=== PATIENT | female | born 1985 | race Caucasian/White ===

== ENCOUNTER 2016-10-12 00:35 | Inpatient (IN) | payer OTHER ==
[2016-10-12] MEDS ORDERED: OXYTOCIN 10 UNITS/ML VIAL IM ONE (01:03)
[2016-10-12] MEDS ORDERED: MINERAL OIL 25 ML BOT ONE (01:12)
[2016-10-12] MEDS ORDERED: OXYTOCIN 10 UNITS/ML VIAL ONE (01:12)
[2016-10-12] MEDS ORDERED: LIDOCAINE Viscous 2% 15 ML UDCUP ONE (01:13)
[2016-10-12] MEDS ORDERED: PUMP TUBING ONE (01:13)
[2016-10-12] MEDS ORDERED: OXYTOCIN IN LR 0 ML IV ONE (01:13)
[2016-10-12] MEDS ORDERED: LIDOCAINE 1% (PRES FREE) 30 ML VIAL ONE (01:13)
[2016-10-12 01:27] VITALS: BMI 33.3
[2016-10-12] MEDS ORDERED: FENTANYL/ROPIVACAINE EPIDURAL 250 ML EP ONE (01:43)
[2016-10-12] MEDS ORDERED: EPIDURAL PUMP SET ONE (01:43)
[2016-10-12] MEDS: LACTATED RINGERS 1,000 ML IV PRN ×2 (01:46→02:10)
[2016-10-12 01:59] LABS: HEMATOCRIT 35.6 % (37.0-47.0); HEMOGLOBIN 12.1 gm/l (12.0-16.0); MEAN CELL VOLUME 83.2 fl (81.0-99.0); MEAN CORPUSCULAR HEMOGLOBIN 28.3 pg (27.0-31.0)
[2016-10-12] MEDS ORDERED: EPIDURAL PROCEDURE TRAY ONE (02:06)
[2016-10-12] MEDS ORDERED: LACTATED RINGERS 2,000 ML ONE (02:07)
--- NOTE | 2016-10-12 02:16 | PCMAN ---
OB Admission Note - History : 7 Term: 4 : 0 Abortions (S&E): 2 Livin Gestational Age (weeks): 40 Days (#/7): 3 Admit Cervical Dilation:: 6.5 Admit Cervical Effacement (%):: 90 Admit Station:: -1 Admit Presentaton:: vertex Membrane Status: Intact Labor Onset (Date): 10/11/16 Labor Onset (Time): 20:00 Contractions: Yes Contraction Frequency:: q2-3min Heart Rate:: 130 (moderate variability, accels present, early decel present) Status:: Category 1 EFW:: [id number] Summary of Course:: Onset of care at 18wks x11 visits. course complicated by AB neg maternal blood type (declined Rhogam at 28wks) and failed 1hr gtt and passed 3hr gtt. Medical history includes migraines, pyelonephritis in 2007 during , and depression after most recent miscarriage (now resolved). total weight gain this =15lbs. Pre- BMI=31. Pt declines an IV and active management of 3rd stage of labor unless indicated. Plans an unmedicated . - Labs Blood Type: AB (-) negative Hct/Hgb:: 35.6/12.1 Rubella Status: Immune GBS Status: Negative Abnormal Labs: None Other Labs:: Failed 1hr gtt, passed 3hr gtt. [id number]=7.5 - Review of Systems Positive for ctx, negative for SROM, bloody show, decreased movement. - Physical Exam General: Afebrile Lungs: Clear to Auscultation Bilaterally Cardiovascular: Regular Rate and Rhythm Genitourinary: Normal Female Genitalia Extremities: Full ROM Skin: Normal Color - Problems (1) Active labor at term Status: Acute Code: [id number] Assessment/Plan: A: 30 IUP at 40w3d Active labor at term Fetus Category 1 GBS neg Rh neg Bag of he intact [id number] P: Admit to [facility] Defer labs and IV per pt request IM pit ordered and drawn up-pt aware that it may be indicated depending on labor progress Clear liquid diet Intermittent auscultation per policy Hydrotherapy and position changes for pain relief Expectant management Anticipate
[2016-10-12] MEDS: FENTANYL/ROPIVACAINE EPIDURAL 250 ML EP SCH ×2 (02:31→05:00)
[2016-10-12] MEDS ORDERED: BENZOCAINE/MENTHOL 60 APPLIC/BOT TP PRN (05:04)
[2016-10-12] MEDS ORDERED: ACETAMINOPHEN 325 MG TABLET PO PRN (05:04)
[2016-10-12] MEDS ORDERED: DOCUSATE SODIUM 100 MG CAPSULE PO PRN (05:04)
[2016-10-12] MEDS ORDERED: DIPHTH,PERTUSS(ACELL),TET VAC 0.5 ML VIAL IM V ONE (05:04)
[2016-10-12] MEDS ORDERED: CALCIUM CARBONATE 500 MG TAB.CHEW PO PRN (05:04)
[2016-10-12] MEDS ORDERED: LANOLIN 50 APPLIC/7G TUBE TP PRN (05:04)
[2016-10-12] MEDS ORDERED: FLU VACC 2016-17 (36MO-64Y)/PF 60 MCG/0.5 ML SYRINGE IM V ONE (05:14)
--- NOTE | 2016-10-12 05:19 | PCMDEL ---
Delivery Note - Labor 1st stage (hr/min):: 8h23m 2nd stage (hr/min):: 22m 3rd stage (hr/min):: 9m Total (hr/min):: 8h54m Pushed (hr/min):: 10m - Delivery Delivery (Date): 10/12/16 Delivery (Time): 04:45 Gender: Male Presentation: Cephalic Position: OA Umbilical Cord: 3 Vessel, True Knot (x2) Delayed Cord Clamping:: > 3 min 1 Minute Total: 9 5 Minute Total: 9 Placenta:: intact, shultze EBL:: 150 Perineum:: intact Anesthesia/Meds:: epidural Length ROM:: 1m Comments:: 1st stage: At 7.5cm dilation, pt requested an epidural for pain relief, which was achieved with good effect. She was able to nap for 1-2hrs comfortably. FHTs Category 1. Straight cathed prior to pushing for ~150mL urine. 2nd stage: Rhiannon pushed well in side-lying. FHTs Category 2 for variable decelerations and a prolonged into the 90s. O2 mask applied and position changed , which brought FHTs up to 110s. AROM at for clear fluid. Pt achieved an of a viable male (Apgars 9/9) over an intact perineum. Infant placed on maternal abdomen. 3VC was allowed to stop pulsing prior to clamping and cutting. 10mU IM pitocin given for active management of 3rd stage with the pt's consent. 3rd stage: Placenta delivered shultze and intact with maternal effort. Fundus was firm deep, 1 FB below the umbilicus. Bleeding minimal. Inspection revealed an intact perineum. A true knot x2 was noted in the cord and scattered microcalcifications were noted on the cord side of the placenta. [id number]. Mom and baby [id number] and bonding well.
[2016-10-12] MEDS: IBUPROFEN 800 MG TABLET PO SCH ×3 (07:02→18:33)
[2016-10-12] MEDS: OXYCODONE/ACETAMINOPHEN 5/325 MG TABLET PO PRN ×2 (15:23→18:33)
[2016-10-12] MEDS ORDERED: IV START KIT ONE (15:53)
[2016-10-12] MEDS ORDERED: LACTATED RINGERS 1,000 ML ONE (15:54)
[2016-10-12] MEDS ORDERED: RHOGAM 300 MCG SYRINGE IM ONE (18:32)
[2016-10-13] MEDS: IBUPROFEN 800 MG TABLET PO SCH ×3 (00:22→10:45)
[2016-10-13 08:28] VITALS: BP 124/66
--- NOTE | 2016-10-13 09:51 | PDOC39B ---
Hospital Course: ADMIT DATE: 10/12/16 DISCHARGE DATE: 10/13/16 ADMISSION DIAGNOSES: Active Labor PROCEDURES: HISTORY OF PRESENT ILLNESS: 31 year old G7 T4 L4 at 40 weeks 3 days presenting with active labor. HOSPITAL COURSE: 1st stage: At 7.5cm dilation, pt requested an epidural for pain relief, which was achieved with good effect. She was able to nap for 1- 2hrs comfortably. FHTs Category 1. Straight cathed prior to pushing for ~150mL urine. 2nd stage: Rhiannon pushed well in side-lying. FHTs Category 2 for variable decelerations and a prolonged into the 90s. O2 mask applied and position changed , which brought FHTs up to 110s. AROM at for clear fluid. Pt achieved an of a viable male infant (Apgars 9/9) over an intact perineum. placed on maternal abdomen. 3VC was allowed to stop pulsing prior to clamping and cutting. 10mU IM pitocin given for active management of 3rd stage with the pt's consent. 3rd stage: Placenta delivered shultze and intact with maternal effort. Fundus was firm deep, 1 FB below the umbilicus. Bleeding minimal. Inspection revealed an intact perineum. A true knot x2 was noted in the cord and scattered microcalcifications were noted on the cord side of the placenta. [id number]. Mom and baby alet-vb-bgal and bonding well. : Routine, uncomplicated recovery. Up ad yordy without issue. Able to void. Hasn't had bowl movement, but passing gas. Unconcerned about constipation. Pain controlled with ibuprofen, tylenol, and occasional norco. She declines any rx for home. She is without issue. BCM: plans vasectomy and not interested in any additional forms. Will RTC in 2wks and 6wks. By day of discharge the patient is stable, well and ready to go home. - Physical Exam Vital Signs: Temp Pulse Resp BP Pulse Ox 98.0 F 88 16 124/66 10/13/16 08:25 10/13/16 08:25 10/13/16 08:25 10/13/16 08:25 General: Afebrile Psych/Mental Status: Mood/Affect Appropriate, Judgment/Insight Intact, Bonding Well Neurological: Grossly Intact, Alert, Oriented x 4, Normal Gait, Normal Speech Lungs: Clear to Auscultation Bilaterally Cardiovascular: Regular Rate and Rhythm Breast: Soft, Skin intact, Nipples Intact Fundus: Firm, Midline, Below Umbilicus Abdomen: Normal Bowel Sounds Genitourinary: Normal Female Genitalia Lochia: Light Rectal Exam: Deferred Extremities: Full ROM Skin: Normal Color, Warm, Dry, Intact - Discharge Diagnosis (1) (normal spontaneous vaginal delivery) Status: Acute Assessment/Plan: A: Day #1 s/p exclusively Rh neg, received Rhogam only, declined antepartum stable and appropriate for home P: Reviewed warning s/s and when to call CNMs BCM: vasectomy RTC: 2wk and 6wk appt, appt given - Discharge Plan Condition: Stable Disposition: Home Instruction Forms: Vaginal Discharge Instructions Additional Instructions: Midwifery 'After the ' handout given to patient. Discharge Medications: Take ibuprofen and tylenol as needed for pain Continue to take vitamin Follow-Up: Rupal Ansari CNM [Certified Nurse Office Clerk Assistant] - 10/25/16 1:00 pm
[2016-10-13] MEDS: OXYCODONE/ACETAMINOPHEN 5/325 MG TABLET PO PRN (10:45)
== END 2016-10-13 11:25 | disposition home or self-care (01) | DRG 775 ==
LOC: FBC 00:35 → FBCOUT 00:35 → FBC 00:57 → FBCOUT 00:57
PROVIDERS: ADMIT Registered Nurse; ATTEND Registered Nurse
PROC: 10E0XZZ Delivery of Products of Conception, External Approach (ICD-10-PCS; principal; 2016-10-12)
PROC: 10907ZC Drainage of Amniotic Fluid, Therapeutic from Products of Conception, Via Natural or Artificial Opening (ICD-10-PCS; 2016-10-12)
PROC: 00HU33Z Insertion of Infusion Device into Spinal Canal, Percutaneous Approach (ICD-10-PCS; 2016-10-12)
PROC: 3E0234Z Introduction of Serum, Toxoid and Vaccine into Muscle, Percutaneous Approach (ICD-10-PCS; 2016-10-13)
DX: O36.0930 Maternal care for other rhesus isoimmunization, third trimester, not applicable or unspecified (principal); O69.2XX0 Labor and delivery complicated by other cord entanglement, with compression, not applicable or unspecified; O43.893 Other placental disorders, third trimester; Z82.79 Family history of other congenital malformations, deformations and chromosomal abnormalities; Z3A.40 40 weeks gestation of pregnancy; Z37.0 Single live birth